=== PATIENT | female | born 1975 | race Caucasian/White ===

== ENCOUNTER → 2018-12-09 10:04 | Outpatient (CLI) | payer MEDICAID, SELFPAY ==
--- NOTE | 2018-12-09 10:11 | XR_ITS ---
XR knee LT 3V HISTORY: ITS.REASON: SWELLING OF LEFT KNEE JOINT ORDERING PHYSICIAN: Shaye Doss PATIENT AGE: 43 years COMPARISON: None FINDINGS: No fracture or dislocation. No lytic or blastic change. There is some nonspecific calcification in the popliteal region along the distal femur posteriorly nonspecific. IMPRESSION: 1. No acute finding. 2. Nonspecific coarse calcification along the posterior aspect of the distal femur etiology indeterminate
== END ==
PROVIDERS: PCP Nurse Practitioner Family; Visit Provider Nurse Practitioner Family
DX: M25.462 Effusion, left knee (principal)
CPT/HCPCS: 73562